=== PATIENT | male | born 1965 | race Caucasian/White ===

== ENCOUNTER → 2023-09-13 09:12 | Outpatient (REF) | payer BC, SELFPAY ==
[2023-09-13 10:47] LABS: Hematocrit 44.6 % (39.0-52.0); Mean Corp Hgb Conc. 33.6 g/dL (33.0-37.0); Mean Corpuscular Hgb 28.4 pg (27.0-31.0); Mean Corpuscular Volume 84.5 fL (80.0-94.0); Mean Platelet Volume 9.4 fL (7.4-10.4); Platelet Count 214 10^3/uL (130-400); Red Blood Cell Count 5.28 10^6/uL (4.70-6.10); Red Cell Dist. Width 11.9 % (11.5-14.5); White Blood Cell Count 6.3 10^3/uL (4.8-10.8)
[2023-09-13 11:19] LABS: ALT (SGPT) 65 U/L (0-50); AST (SGOT) 37 U/L (17-59); Albumin 4.7 g/dl (3.5-5.0); Alkaline Phosphatase 85 U/L (38-126); Blood Urea Nitrogen 21 mg/dl (9-20); Calcium 9.5 mg/dl (8.4-10.2); Carbon Dioxide 21 mmol/L (22-30); Chloride 104 mmol/L (98-107); Glucose 155 mg/dl (70-99); HDL Cholesterol 31 mg/dl; LDL Cholesterol, Calculated 89 mg/dl; Potassium 4.3 mmol/L (3.5-5.1); Sodium 137 mmol/L (135-145); Total Bilirubin 0.8 mg/dl (0.2-1.3); Total Cholesterol 169 mg/dl (50-199); Total Protein 8.1 g/dl (6.3-8.2); Triglyceride 246 mg/dl (10-149); Very Low Density Lipoprotein 49 mg/dl (0-30); eGFR > 60.00
[2023-09-13 11:28] LABS: Absolute Neutrophils -Man Diff 2.9 10^3/uL (1.4-6.5); Band Neutrophils 2 % (0-3); Eosinophils 3 % (0-6); Lymphocytes 39 % (20-51); Monocytes 11 % (2-9); Normal RBC Morphology Yes; Platelets Checked Yes; Segmented Neutrophils 45 % (42-75)
[2023-09-13 11:29] LABS: Total Cells Counted 100
[2023-09-13 11:41] LABS: Microalbumin, Random Urine 4.7 mg/dl (0.6-1.7)
[2023-09-13 11:45] LABS: TSH 3.02 uIU/ml (0.47-4.68)
== END ==
LOC: REG 09:12
PROVIDERS: ATTENDING PHYSICIAN Family Medicine
DX: E11.65 Type 2 diabetes mellitus with hyperglycemia (principal); E11.22 Type 2 diabetes mellitus with diabetic chronic kidney disease; N18.2 Chronic kidney disease, stage 2 (mild); R80.9 Proteinuria, unspecified; I10 Essential (primary) hypertension; E78.2 Mixed hyperlipidemia; K76.0 Fatty (change of) liver, not elsewhere classified
CPT/HCPCS: 36415; 80053; 80061; 82043; 82570; 83036; 84443; 85025

== ENCOUNTER → 2023-11-07 15:18 | Outpatient (REF) | payer BC, SELFPAY | LOC: PAVMRI 15:18 | PROVIDERS: ATTENDING PHYSICIAN Family Medicine | DX: E11.65 Type 2 diabetes mellitus with hyperglycemia (principal); G62.9 Polyneuropathy, unspecified; M79.605 Pain in left leg; M79.604 Pain in right leg | CPT/HCPCS: 72148 ==

== ENCOUNTER → 2023-12-15 12:33 | Outpatient (REF) | payer BC, SELFPAY ==
[2023-12-15 15:08] LABS: ALT (SGPT) 42 U/L (0-50); AST (SGOT) 30 U/L (17-59); Albumin 4.5 g/dl (3.5-5.0); Alkaline Phosphatase 65 U/L (38-126); Blood Urea Nitrogen 20 mg/dl (9-20); Calcium 9.2 mg/dl (8.4-10.2); Carbon Dioxide 22 mmol/L (22-30); Chloride 106 mmol/L (98-107); Glucose 151 mg/dl (70-99); HDL Cholesterol 32 mg/dl; LDL Cholesterol, Calculated 66 mg/dl; Potassium 4.3 mmol/L (3.5-5.1); Sodium 140 mmol/L (135-145); Total Bilirubin 0.8 mg/dl (0.2-1.3); Total Cholesterol 116 mg/dl (50-199); Total Protein 7.3 g/dl (6.3-8.2); Triglyceride 93 mg/dl (10-149); Very Low Density Lipoprotein 18 mg/dl (0-30); eGFR > 60.00
[2023-12-15 15:39] LABS: PSA, Total - Screen 0.96 ng/ml (0.0-4.0)
[2023-12-16 09:15] LABS: Glycohemoglobin (HgbA1c) 6.2 % (4.0-5.6)
== END ==
LOC: RCS 12:33
PROVIDERS: ATTENDING PHYSICIAN Family Medicine
DX: E11.65 Type 2 diabetes mellitus with hyperglycemia (principal); I11.9 Hypertensive heart disease without heart failure; I44.7 Left bundle-branch block, unspecified; I42.0 Dilated cardiomyopathy; Z12.5 Encounter for screening for malignant neoplasm of prostate; E78.2 Mixed hyperlipidemia
CPT/HCPCS: 36415; 80053; 80061; 83036; 93306; G0103

== ENCOUNTER 2024-03-29 07:40 | Inpatient (IN) | payer BC, SELFPAY ==
[2024-03-29] VITALS (16 sets, daily range): BP systolic 88–133; BP diastolic 50–69; PULSE 65–110; O2SAT 98; BMI 31.8
[2024-03-29 02:44] LABS: Glucose - Point of Care 237 mg/dl (70-99)
--- NOTE | 2024-03-29 03:05 | ED.GENMED ---
History of Present Illness
<DAINA Dunham - Last Filed: 03/29/24 03:59>
General
Chief Complaint: Fainting/Passed Out
Source: patient
Time Seen by Provider: 03/29/24 02:46
Nursing documentation reviewed up to this point in time: agreed with
History of Present Illness
History of Present Illness:
Pt is a 59 yo M who presents to the emergency department via EMS due to syncopal episode at home. Pt states that he got up during the night to go to the bathroom and fainted in the bathroom. The patient's states that the patient was able to get
himself up from the bathroom floor and was able to walk to the bed to sit down. Pt states that he felt dizzy before the fainted. Pt denies hitting his head. Pt had nausea and 3 episodes of vomiting that began when EMS arrived and began to move the
patient. Pt was given Zofran by EMS prior to arriving to the ED. Pt states that he feels weak. He states that he has never experienced this previously. Pt denies chest pain, shortness of breath, headache, abdominal pain, fever, chills, changes in
hearing.
The patient's reports that since Monday the patient has been having cold-like symptoms of nasal congestion and dry cough.
Past History
<DAINA Dunham - Last Filed: 03/29/24 03:59>
Past History
ED Past Medical History: Other (divericulitis, chronic leg neuropathy )
Social History
Tobacco: Non-smoker
Alcohol: Occasional
Family History
Family History: CAD; Negative Diabetes or Hypertension
Review of Systems
<DAINA Dunham - Last Filed: 03/29/24 03:59>
Review of Systems
Allergies reviewed?: Yes
Constitutional: Reports no symptoms
Respiratory: Reports no symptoms
Cardiac: Reports syncope
ABD/GI: Reports nausea and vomiting
: Reports no symptoms
Neurological: Reports weakness
Phy Exam
<Tiffany Kauffman, [facility] - Last Filed: 03/29/24 03:59>
General Physical Exam
General Presentation: severe distress
General age: appears stated age
General Skin: pale
General Habitus: normal
General Mental: alert
General Hydration: appears well hydrated
Cardiovascular Exam
Cardiovascular Exam: regular rate/rhythm
Pulmonary Exam
Pulmonary Exam: lungs clear
Neurological Exam
Neurological Exam: alert, oriented x3 and speech normal
Sepsis
<Damián Boateng DO - Last Filed: 03/29/24 06:13>
Sepsis Screening
Sepsis Assessment: Sepsis
Sepsis Screening: Lactate >2mmol/L
Sepsis Screen
Sepsis Screen: Sepsis
Date: 03/29/24
Time: 06:13
Course
<Tiffany Kauffman, [facility] - Last Filed: 03/29/24 03:59>
Orders/Labs/Results
Orders:
Orders
03/29/24 02:42
Electrocardiogram (*1) Urgent
Reason for Study: Chest Pain
CT Head W/o Iv Contrast Urgent
Comment:
Reason For Exam: syncope vomiting
Cardiac Monitoring- Treatment ONCE
EKG- Treatment ONCE
IV Insert/Care/Rem.- Treatment PRN
Accucheck Once [Bedside Glucose Monitoring-ONCE] As Directed
O2 Therapy [RESP] Urgent
Titrate/Wean O2 to maintain O2 sat greater than (%): 90
Special Instructions: Maintain sats >/=90%
Pulse Ox/spot Check [RESP] Urgent
Quantity: 1
Special Instructions: ON ROOM AIR
03/29/24 03:00
Complete Blood Count/With Diff Urgent
Comprehensive Metabolic Panel Urgent
Lipase Urgent
Troponin I Urgent
03/29/24 03:09
Lactic Acid Q4H
Comment: CANCEL 2nd LACTIC ACID IF 1st LACTIC ACID IS LESS THAN 2
03/29/24 03:11
Chest [CR Chest - 2 Views ] Urgent
Comment:
Reason For Exam: emesis, syncope
03/29/24 03:24
0.9% Sodium Chloride 1000 ml [Nss] 1,000 ml IV BOLUS
03/29/24 05:17
COVID-19 Antigen Urgent
Source: Nasal Swab
Influenza A+B Rapid Molecular Urgent
MAXINE Source: Nasal Swab
Specimen Description:
03/29/24 05:33
0.9% Sodium Chloride 500 ml [Nss] 1,000 ml IV ONCE
03/29/24 06:15
0.9% Sodium Chloride 1000 ml [Nss] 1,000 ml IV 250 mls/hr
03/29/24 07:00
Lactate Level [Lactic Acid] Urgent
Abnormal Lab Results
03/29/24 03/29/24 03/29/24
02:42 03:00 03:09
WBC 19.3 H 10^3/uL
(4.8-10.8)
Abs Immat Gran (auto) 0.1 H 10^3/uL
(0-0.05)
Absolute Neuts (auto) 11.5 H 10^3/uL
(1.4-6.5)
Absolute Lymphs (auto) 4.9 H 10^3/uL
(1.2-3.4)
Absolute Monos (auto) 2.2 H 10^3/uL
(0.1-0.6)
Immature Gran % 0.7 H %
(0-0.5)
Monocytes % 11.3 H %
(1.7-9.3)
Carbon Dioxide 21 L mmol/L
(22-30)
BUN 30 H mg/dl
(9-20)
Glucose 233 H mg/dl
(70-99)
Lactic Acid 2.5 H mmol/L
(0.7-2.0)
SARS-CoV-2 Antigen
POC Glucose 237 H mg/dl
(70-99)
03/29/24
05:17
WBC
Abs Immat Gran (auto)
Absolute Neuts (auto)
Absolute Lymphs (auto)
Absolute Monos (auto)
Immature Gran %
Monocytes %
Carbon Dioxide
BUN
Glucose
Lactic Acid
SARS-CoV-2 Antigen Positive A
(Negative)
POC Glucose
03/29/24 03:00
03/29/24 03:00
Vital Signs
Initial and Last Documented VS:
Initial Vital Signs
Temp Pulse Resp Pulse Ox
97.8 F 75 16 97
03/29/24 02:44 03/29/24 02:44 03/29/24 02:44 03/29/24 02:44
Last Documented Vital Signs
Temp Pulse Resp BP Pulse Ox
97.8 F 62 12 88/53 92
03/29/24 02:44 03/29/24 05:30 03/29/24 05:30 03/29/24 05:00 03/29/24 05:30
<Damián Boateng, DO - Last Filed: 03/29/24 06:13>
Orders/Labs/Results
Orders:
Orders
03/29/24 02:42
Electrocardiogram (*1) Urgent
Reason for Study: Chest Pain
CT Head W/o Iv Contrast Urgent
Comment:
Reason For Exam: syncope vomiting
Cardiac Monitoring- Treatment ONCE
EKG- Treatment ONCE
IV Insert/Care/Rem.- Treatment PRN
Accucheck Once [Bedside Glucose Monitoring-ONCE] As Directed
O2 Therapy [RESP] Urgent
Titrate/Wean O2 to maintain O2 sat greater than (%): 90
Special Instructions: Maintain sats >/=90%
Pulse Ox/spot Check [RESP] Urgent
Quantity: 1
Special Instructions: ON ROOM AIR
03/29/24 03:00
Complete Blood Count/With Diff Urgent
Comprehensive Metabolic Panel Urgent
Lipase Urgent
Troponin I Urgent
03/29/24 03:09
Lactic Acid Q4H
Comment: CANCEL 2nd LACTIC ACID IF 1st LACTIC ACID IS LESS THAN 2
03/29/24 03:11
Chest [CR Chest - 2 Views ] Urgent
Comment:
Reason For Exam: emesis, syncope
03/29/24 03:24
0.9% Sodium Chloride 1000 ml [Nss] 1,000 ml IV BOLUS
03/29/24 05:17
COVID-19 Antigen Urgent
Source: Nasal Swab
Influenza A+B Rapid Molecular Urgent
MAXINE Source: Nasal Swab
Specimen Description:
03/29/24 05:33
0.9% Sodium Chloride 500 ml [Nss] 1,000 ml IV ONCE
03/29/24 06:15
0.9% Sodium Chloride 1000 ml [Nss] 1,000 ml IV 250 mls/hr
03/29/24 07:00
Lactate Level [Lactic Acid] Urgent
Abnormal Lab Results
03/29/24 03/29/24 03/29/24
02:42 03:00 03:09
WBC 19.3 H 10^3/uL
(4.8-10.8)
Abs Immat Gran (auto) 0.1 H 10^3/uL
(0-0.05)
Absolute Neuts (auto) 11.5 H 10^3/uL
(1.4-6.5)
Absolute Lymphs (auto) 4.9 H 10^3/uL
(1.2-3.4)
Absolute Monos (auto) 2.2 H 10^3/uL
(0.1-0.6)
Immature Gran % 0.7 H %
(0-0.5)
Monocytes % 11.3 H %
(1.7-9.3)
Carbon Dioxide 21 L mmol/L
(22-30)
BUN 30 H mg/dl
(9-20)
Glucose 233 H mg/dl
(70-99)
Lactic Acid 2.5 H mmol/L
(0.7-2.0)
SARS-CoV-2 Antigen
POC Glucose 237 H mg/dl
(70-99)
03/29/24
05:17
WBC
Abs Immat Gran (auto)
Absolute Neuts (auto)
Absolute Lymphs (auto)
Absolute Monos (auto)
Immature Gran %
Monocytes %
Carbon Dioxide
BUN
Glucose
Lactic Acid
SARS-CoV-2 Antigen Positive A
(Negative)
POC Glucose
03/29/24 03:00
03/29/24 03:00
Vital Signs
Initial and Last Documented VS:
Initial Vital Signs
Temp Pulse Resp Pulse Ox
97.8 F 75 16 97
03/29/24 02:44 03/29/24 02:44 03/29/24 02:44 03/29/24 02:44
Last Documented Vital Signs
Temp Pulse Resp BP Pulse Ox
97.8 F 62 12 88/53 92
03/29/24 02:44 03/29/24 05:30 03/29/24 05:30 03/29/24 05:00 03/29/24 05:30
<DAINA Dunham - Last Filed: 03/29/24 03:59>
*Critical Care Note
Total Time (30-74mins, 75-104mins- exclusive of procedures): Not Applicable
<Damián Boateng DO - Last Filed: 03/29/24 06:13>
Update Note
Update Note:
Discussed lab work with patient. He is still feeling weak. He does not feel that he can ambulate. Patient notes that he is COVID-positive. He does not feel nauseated any longer, but feels that he does not feel great. Denies fever or chills
currently. Denies chest pain or shortness of breath. Patient to be admitted and to the hospitalist service for COVID and weakness.
ED Attending Note
<DAINA Dunham - Last Filed: 03/29/24 03:59>
-
Portions of this chart may have been created with voice recognition software.� Occasional wrong word or��sound alike� substitutions may have occurred due to the inherent limitations of voice recognition software.
Discharge Plan
Departure
Patient Disposition: Admit
Date of Disposition: 03/29/24
Time of Disposition: 06:09
Admit to: Telemetry
Presentation/result/management discussed w/ accepting MD/DO: Hospitalist
Condition: Fair
Discharge Problem:
COVID, Sepsis, Syncope and collapse, Intractable nausea and vomiting
Prescriptions:
No Action
aspirin 1 MG tablet
325 mg PO DAILY
Patient Comments:
PT NOT USUALLY ON ASA ONLY TOOK ON 05/27 AND 05/28
gabapentin 100 MG capsule
100 mg PO BID
Referrals:
Smita Camilo MD [Family Provider] -
Interventions
Interventions:
*Risk Screen - Suicide Last Done: 03/29/24 02:50
*General Assessment Last Done: 03/29/24 02:50
*Neglect/Abuse Screening Last Done: 03/29/24 02:50
ED- Fall Risk Assessment Last Done: 03/29/24 03:00
*ED COVID-19 Vaccine History Last Done: 03/29/24 03:00
ED- Cardiac Assessment Last Done: 03/29/24 03:00
ED- Neurological Assessment Last Done: 03/29/24 03:00
Discharge Date and Time
Print Language: ZAMBIAN
[2024-03-29 03:08] LABS: % Basophils 0.6 % (0-2); % Eosinophils 2.3 % (0-6); % Immature Granulocytes 0.7 % (0-0.5); % Lymphocytes 25.5 % (20.5-51.1); % Monocytes 11.3 % (1.7-9.3); % Neutrophils 59.6 % (42.2-75.2); Absolute Basophils 0.1 10^3/uL (0-0.2); Absolute Eosinophils 0.5 10^3/uL (0-0.7); Absolute Immature Granulocytes 0.1 10^3/uL (0-0.05); Absolute Lymphocytes 4.9 10^3/uL (1.2-3.4); Absolute Monocytes 2.2 10^3/uL (0.1-0.6); Absolute Neutrophils 11.5 10^3/uL (1.4-6.5); Hematocrit 41.6 % (39.0-52.0); Hemoglobin 14.2 g/dL (13.0-18.0); Mean Corp Hgb Conc. 34.1 g/dL (33.0-37.0); Mean Corpuscular Volume 84.9 fL (80.0-94.0); Nucleated Red Blood Cells % 0 % (-); Platelet Count 329 10^3/uL (130-400); Red Cell Dist. Width 12.3 % (11.5-14.5); White Blood Cell Count 19.3 10^3/uL (4.8-10.8)
[2024-03-29 03:23] LABS: ALT (SGPT) 32 U/L (0-50); AST (SGOT) 24 U/L (17-59); Albumin 4.3 g/dl (3.5-5.0); Alkaline Phosphatase 84 U/L (38-126); Blood Urea Nitrogen 30 mg/dl (9-20); Calcium 8.9 mg/dl (8.4-10.2); Carbon Dioxide 21 mmol/L (22-30); Chloride 102 mmol/L (98-107); Glucose 233 mg/dl (70-99); Lipase 131 U/L (23-300); Potassium 3.6 mmol/L (3.5-5.1); Sodium 139 mmol/L (135-145); Total Bilirubin 0.5 mg/dl (0.2-1.3); Total Protein 7.4 g/dl (6.3-8.2); eGFR > 60.00
[2024-03-29 03:33] LABS: Lactic Acid 2.5 mmol/L (0.7-2.0)
[2024-03-29 03:34] LABS: Troponin I < 0.012 ng/ml
[2024-03-29] MEDS: NSS 1000 IV ×3 (03:47→07:31)
[2024-03-29 05:40] LABS: COVID-19 Antigen Positive (Negative)
--- NOTE | 2024-03-29 07:03 | HPS.HSE ---
Family Physician
-
Family Physician: Smita Camilo MD
Chief Complaint
-
Syncope
History of Present Illness
Patient is a 59y M with PMH significant for hypertension and DM-II who presents to ED complaining of N/V, weakness and syncope. Patient states that he started to feel ill about one week ago. He had primarily GI symptoms with N/V/D. These
symptoms seemed to gradually improve and on he felt fairly well. He had fair appetite for the past two days.
This evening he woke in the middle of the night with the urge to urinate. He began to walk to the bathroom and he collapsed. He does not believe that he completely lost consciousness.
He had multiple episodes of emesis after his fall. EMS was called and patient was brought to the ED for further evaluation and treatment.
Medical History
Past Medical History
Past Medical History: Reports Other
Additional Past Medical History:
Hypertension
DM-II
Obesity
Diverticular Disease
Past Surgical History: Reports Other
Additional Past Surgical History:
Partial Bowel Resection (Perforated Diverticulum)
Social History
Tobacco: Non-smoker
Alcohol: None
Drug: None
Personal:
Living: With Family
Family History
Family History: Not pertinent
Allergies / Home Medications
Allergies reflects when Allergies were last updated in [employer].
Home Medications with original date entered in [employer]
Allergy/Medication List:
Allergies
Allergy/AdvReac Type Severity Reaction Status Date / Time
No Known Allergies Allergy Verified 03/29/24 02:43
Home Medications
glipizide 5 mg tablet 5 mg PO DAILY 03/29/24
lisinopril 03/29/24
tirzepatide 7.5 mg/0.5 mL subcutaneous pen injector (Mounjaro) 7.5 mg SC QWEEK 03/29/24
Patient unaware of lisinopril dose.
Also notes that he takes one other BP med - the name of which he cannot recall.
Review of Systems
-
History Source: Patient
A 12 point ROS was completed and negative except as noted: Yes
Constitutional: Reports Fatigue; Denies Fever or Chills
EENT: Denies Sore Throat
Respiratory: Denies Cough or Trouble Breathing
Cardiac: Reports Syncope; Denies Chest Pain or Palpitations
Abdomen/GI: Reports Nausea, Vomiting and Diarrhea; Denies Abdominal Pain, Bloody Stools, Black Stools or Anorexia
: Denies Dysuria or Frequency
Musculoskeletal: Denies Joint Pain or Edema
Neurological: Reports Dizzy and Weakness; Denies Headache or Numbness
Psych: Denies Depression or Anxiety
Physical Exam
Vital Signs
Vital Signs
Temp Pulse Resp BP Pulse Ox
97.8 F 63 9 116/57 92
03/29/24 02:44 03/29/24 06:00 03/29/24 06:00 03/29/24 06:00 03/29/24 06:00
Physical Exam
General: Other (Ill-appearing 59y M.)
HEENT: Other (Very dry MM.)
Respiratory: Clear; No Wheezes, Rales or Rhonchi
Cardiac: S1/S2, Regular Rhythm and Murmur (II/ RANJANA)
GI: Soft, Non Tender, Non Distended and Normal Bowel Sounds
Musculoskeletal: No Clubbing, No Cyanosis and No Edema
Neuro: AO x 3
Laboratory Results
-
03/29/24 03:00
03/29/24 03:00
Laboratory Results
Lactic Acid 2.5 mmol/L (0.7-2.0) H 03/29/24 03:09
Total Bilirubin 0.5 mg/dl (0.2-1.3) 03/29/24 03:00
AST 24 U/L (17-59) 03/29/24 03:00
ALT 32 U/L (0-50) 03/29/24 03:00
Alkaline Phosphatase 84 U/L (38-126) 03/29/24 03:00
Troponin I < 0.012 ng/ml 03/29/24 03:00
Lipase 131 U/L (23-300) 03/29/24 03:00
Impression/Plan
-
A/P: Patient is a 59y M with PMH significant for HTN and DM-II who presents to ED complaining of N/V/D and syncopal episode this evening.
COVID-19 Infection
Gastroenteritis
- Admit for further evaluation and treatment.
- COVID positive in the ED this AM. Patient states that he has received multiple vaccinations - including a booster this Fall.
- No significant hypoxemia, cough, reported dyspnea, etc.
- Primarily GI symptoms.
- Supportive care including IVFs, antiemetics, etc.
- Follow proper precautions.
- Check stool studies to rule out other potential GI infections.
- Follow for any new / worsening symptoms.
Lactic Acidosis
Leukocytosis
WALT
- Likely secondary to volume losses / stress response.
- SCr = 1.3 compared to baseline of 1.
- IVFs, supportive care as noted above.
- Follow temperature curve, monitor for any new symptoms.
- Observe off of abx for now.
- Follow labs / lytes for improvement.
Syncope
- Likely secondary to the above - hypovolemia, volume losses, etc.
- Monitor on tele for any evidence of arrhythmia.
- Follow orthostatic signs.
- PT / OT evaluations.
Benign Hypertension
- Hold BP medications acutely.
DM-II
- Hold glipizide and Mounjaro.
- Mounjaro potentially contributing to GI symptoms - patient notes he has been gradually increasing dose over the past few months.
- Follow glucose and cover with SSI as needed.
- Update A1C.
DVT Prophylaxis: Lovenox
Code Status: Full
[2024-03-29 07:50] LABS: Lactic Acid 1.1 mmol/L (0.7-2.0)
[2024-03-29 09:23] LABS: Glucose - Point of Care 116 mg/dl (70-99)
[2024-03-29] MEDS: LR 1000 IV ×3 (09:23→21:55)
[2024-03-29] MEDS: PROTONIX IV 40 MG IV (09:57)
[2024-03-29] MEDS: NSS (PRESERVATIVE FREE) 10 ML IV (09:58)
[2024-03-29 10:37] LABS: TSH Reflex To Free T4 2.11 uIU/ml (0.47-4.68)
[2024-03-29 12:48] LABS: Glucose - Point of Care 126 mg/dl (70-99)
--- NOTE | 2024-03-29 13:59 | CM ---
Reviewed the chart notes. Patient resides with spouse in a two story home. No DME/VN/SNF. Patient on room air. CM continues to be available to patient/family and is monitoring medical plan for needs at discharge.
Plan: Discharge to home when medically stable. No needs anticipated.
[2024-03-29 17:09] LABS: Glucose - Point of Care 112 mg/dl (70-99)
[2024-03-29 21:54] LABS: Glucose - Point of Care 89 mg/dl (70-99)
--- NOTE | 2024-03-29 22:10 | PTCARENOTE ---
Pt provided a 4oz apple juice at this time r/t to blood glucose 89. Pt did have dinner and 2 additional apple sauces @ dinner. Pt aware of s/s of hypoglycemia and educated to tell staff immediately
[2024-03-30 03:23] VITALS: BP 128/72
[2024-03-30] MEDS: LR 1000 IV (04:08)
[2024-03-30 06:58] LABS: Hematocrit 36.6 % (39.0-52.0); Hemoglobin 12.3 g/dL (13.0-18.0); Mean Corp Hgb Conc. 33.6 g/dL (33.0-37.0); Mean Corpuscular Hgb 28.7 pg (27.0-31.0); Mean Corpuscular Volume 85.5 fL (80.0-94.0); Platelet Count 261 10^3/uL (130-400); Red Blood Cell Count 4.28 10^6/uL (4.70-6.10); Red Cell Dist. Width 12.3 % (11.5-14.5); White Blood Cell Count 9.7 10^3/uL (4.8-10.8)
[2024-03-30 07:04] LABS: Blood Urea Nitrogen 19 mg/dl (9-20); Calcium 8.4 mg/dl (8.4-10.2); Carbon Dioxide 26 mmol/L (22-30); Chloride 108 mmol/L (98-107); Estimated Creatinine Clearance 90 ml/min; Glucose 71 mg/dl (70-99); Magnesium 2.4 mg/dl (1.6-2.3); Phosphorus 3.7 mg/dl (2.5-4.5); Potassium 4.5 mmol/L (3.5-5.1); Sodium 143 mmol/L (135-145); eGFR > 60.00
[2024-03-30 07:21] LABS: Glucose - Point of Care 80 mg/dl (70-99)
[2024-03-30 07:35] VITALS: BP 134/75
[2024-03-30 08:44] LABS: Glycohemoglobin (HgbA1c) 5.4 % (4.0-5.6)
[2024-03-30 09:00] VITALS: BP 137/72
--- NOTE | 2024-03-30 09:31 | PTOTSP ---
pt currently demonstrates ability to complete simple ADLs, functional transfers, ambulation with supervision to no assistance. no acute OT needs identified at this time, will sign off.
[2024-03-30] MEDS: PROTONIX IV 40 MG IV (09:32)
[2024-03-30] MEDS: NSS (PRESERVATIVE FREE) 10 ML IV (09:32)
[2024-03-30 11:00] VITALS: BP 140/73; BP 152/79; BP 162/75; PULSE 69; PULSE 73; PULSE 78
[2024-03-30 11:41] VITALS: BP 162/75
[2024-03-30] MEDS: MIRALAX 17 GRAMS PO (11:58)
--- NOTE | 2024-03-30 12:43 | W.PN.HOSP.TC ---
Today's Communication/Plan
-
d/c home
Assessment / Plan
Assessment / Plan
COVID-19 Viral Infection
Gastroenteritis - Improved
- COVID positive in the ED. Patient states that he has received multiple vaccinations - including a booster this Fall.
- No significant hypoxemia, cough, reported dyspnea, etc.
- Primarily GI symptoms.
- No further diarrhea, cancel noro virus check, stool culture collected.
- Follow for any new / worsening symptoms.
Lactic Acidosis - resolved
Leukocytosis -resolved
WALT - resolved
- Likely secondary to volume losses / stress response.
- Cr 1.3, improved.
- Stop further IVF
Syncope - No further episode
Orthostatic hypotension - resolved
- Likely secondary to the above - hypovolemia, volume losses, etc.
- Monitor on tele for any evidence of arrhythmia.
- PT / OT evaluations
Benign Hypertension
- can resume lisinopril. hold HCTZ for 48 hrs post discharge.
DM-II
- Can resume glipizide/Mounjaro
- Mounjaro potentially contributing to GI symptoms - patient notes he has been gradually increasing dose over the past few months.
- Follow glucose and cover with SSI as needed.
- Update A1C.
DVT Prophylaxis: Lovenox
Code Status: Full
More than 30 minutes spent in discharge including
Final examination of the patient
Summarizing hospital stay
Instructions for continuing care to all relevant caregivers
Preparation of discharge records, prescriptions, and referral forms
Total time spent (in minutes): 38 mins
Anticipated Discharge: Today
Subjective/Interval History
-
Date of Service: March 30, 2024
no dyspnea/hypoxia
no other problems
Objective Data
-
Labs:
Laboratory Results
03/30/24
05:31
WBC 9.7
Hgb 12.3 L
Hct 36.6 L
Plt Count 261 D
Sodium 143
Potassium 4.5
Chloride 108 H
Carbon Dioxide 26
BUN 19
Creatinine 1.1
Glucose 71
Calcium 8.4
Vital Signs:
Vital Signs
Temp Pulse Resp BP Pulse Ox
98.3 F 69 16 162/75 95
03/30/24 11:41 03/30/24 11:41 03/30/24 11:41 03/30/24 11:41 03/30/24 11:41
I&O
03/29/24 03/30/24 03/31/24
06:59 06:59 06:59
Intake Total 2860 / 2860
Output Total 650 / 650
Balance 2210 / 2210
Review of Systems
-
Respiratory: Reports No Symptoms
Cardiac: Reports No Symptoms
Abdomen/GI: Reports No Symptoms
Physical Exam
-
General: No Apparent Distress and Comfortable
HEENT: Negative Oxygen
Respiratory: Clear to Auscultation
Cardiac: Regular Rhythm and S1/S2; Negative Murmur or Rub
GI: Soft, Nontender and Nondistended
Musculoskeletal: No Edema
Neuro: Awake, Alert, Oriented, No Motor Deficits and Nonfocal/Grossly Intact
Psych: Calm
--- NOTE | 2024-03-31 15:01 | W.DCSUMMARY ---
Discharge Summary
Discharge Data
Date of Admission: 03/29/24
Date of Discharge: 03/30/24
-
Pending Results: No
Hospital Course
Discharging Physician : Dr Jaime Munoz
Disposition : Home
Primary care physician : Dr Smita Camilo
Principal Discharge diagnosis :
Acute kidney injury
Nausea/vomiting with COVID infection
Syncope with orthostatic hypotension
Showed Getting COVID-19 viral infection
Chronic Discharge diagnosis :
Essential hypertension
Type 2 diabetes mellitus
History of diverticular disease
Hospital Course :
Patient is 59-year-old male with no mentioned past medical history came to ER with nausea/vomiting and syncopal episode. Patient has been feeling sick for 1 week primary with GI issues. Symptoms initially improved although reoccurred causing
patient to have syncope in bathroom. No reported head injury. In ER rapid evaluation showing patient having orthostatic hypotension, tested positive for COVID-19 viral infection as well. Patient chest x-ray did not show any significant pulmonary
infiltrate. Patient was not requiring any oxygen support. Patient was felt to having volume depletion from COVID-related GI issues. Patient had mild renal dysfunction. Patient was started on IV fluid and was monitored in the hospital overnight.
Patient repeat orthostatic vitals were negative. Creatinine normalized as well. At this point patient was discharged home with follow-up with primary care physician office.
Important imaging findings :
None
Procedure findings :
None
Discharge Plan
-
Patient Disposition: Home (Routine Discharge)
Discharge Diagnosis/Procedures: COVID 19 Viral infection, Diarrhea, Syncope, Volume depletion, Mild renal failure
Condition: Fair
Diet: Regular
Activity: As tolerated
Driving Restrictions: No driving
Bathing Restrictions: OK to Shower
Referrals:
Smita Camilo MD [Family Provider] - in one week
Prescriptions:
Continued
lisinopril 40 mg Tablet
40 mg PO DAILY
Mounjaro 7.5 mg/0.5 mL Pen Injector
7.5 mg SC FR
gabapentin 600 mg Tablet
600 mg PO BID
glipizide 5 mg Tablet Extended Release 24hr
5 mg PO DAILY
ibuprofen [Advil] 200 mg Tablet
400 mg PO Q8HPRN PRN (Reason: mild pain)
rosuvastatin [Crestor] 5 mg Tablet
5 mg PO DAILY
Pepcid Complete 10-800-165 mg Tablet,Chewable
1 tab PO DAILYPRN PRN (Reason: gerd)
Held
hydrochlorothiazide 25 mg Tablet
25 mg PO DAILY
Hold Instructions: Resume on 04/01/24.
Discharge Orders:
Discharge Patient (As Directed); Ordered 03/30/24
Ordered By: Jaime Munoz
Discharge Date and Time
Discharge Date/Time: 03/30/24 13:23
Print Language: SWEDISH
== END 2024-03-30 13:23 | disposition home or self-care (01) | DRG 178 ==
LOC: 2 NORTH 07:40
PROVIDERS: ADMITTING PHYSICIAN Hospitalist; ATTENDING PHYSICIAN Hospitalist; EMERGENCY PHYSICIAN Student in an Organized Health Care Education/Training Program; FAMILY PHYSICIAN Family Medicine
DX: U07.1 COVID-19 (principal); E87.20 Acidosis, unspecified; I10 Essential (primary) hypertension; E11.41 Type 2 diabetes mellitus with diabetic mononeuropathy; I95.1 Orthostatic hypotension; E11.8 Type 2 diabetes mellitus with unspecified complications
CPT/HCPCS: 70450; 71046; 80048; 80053; 82962; 83036; 83605; 83690; 83735; 84100; 84443; 84484; 85025; 85027; 87045; 87046; 87427; 87502; 87811; 93005; 94760; 96360; 97110; 97161; 97165; 99285

== ENCOUNTER → 2024-04-06 11:17 | Outpatient (REF) | payer BC, SELFPAY ==
[2024-04-06 12:40] LABS: % Basophils 0.7 % (0-2); % Eosinophils 2.4 % (0-6); % Immature Granulocytes 0.5 % (0-0.5); % Lymphocytes 22.1 % (20.5-51.1); % Monocytes 8.8 % (1.7-9.3); % Neutrophils 65.5 % (42.2-75.2); Absolute Basophils 0.1 10^3/uL (0-0.2); Absolute Eosinophils 0.3 10^3/uL (0-0.7); Absolute Immature Granulocytes 0.1 10^3/uL (0-0.05); Absolute Lymphocytes 2.5 10^3/uL (1.2-3.4); Absolute Neutrophils 7.3 10^3/uL (1.4-6.5); Hematocrit 45.2 % (39.0-52.0); Hemoglobin 15.8 g/dL (13.0-18.0); Mean Corpuscular Hgb 29.2 pg (27.0-31.0); Mean Corpuscular Volume 83.4 fL (80.0-94.0); Mean Platelet Volume 9.1 fL (7.4-10.4); Nucleated Red Blood Cells % 0 % (-); Platelet Count 348 10^3/uL (130-400); Red Blood Cell Count 5.42 10^6/uL (4.70-6.10); Red Cell Dist. Width 12.2 % (11.5-14.5); White Blood Cell Count 11.1 10^3/uL (4.8-10.8)
[2024-04-06 13:07] LABS: ALT (SGPT) 34 U/L (0-50); AST (SGOT) 25 U/L (17-59); Albumin 4.7 g/dl (3.5-5.0); Alkaline Phosphatase 80 U/L (38-126); Blood Urea Nitrogen 27 mg/dl (9-20); Calcium 9.7 mg/dl (8.4-10.2); Carbon Dioxide 24 mmol/L (22-30); Chloride 102 mmol/L (98-107); Glucose 137 mg/dl (70-99); Potassium 4.4 mmol/L (3.5-5.1); Sodium 139 mmol/L (135-145); Total Bilirubin 0.9 mg/dl (0.2-1.3); Total Protein 8.2 g/dl (6.3-8.2); eGFR > 60.00
== END ==
LOC: REG 11:17
PROVIDERS: ATTENDING PHYSICIAN Family Medicine
DX: U07.1 COVID-19 (principal); R55 Syncope and collapse; R42 Dizziness and giddiness
CPT/HCPCS: 36415; 80053; 85025

== ENCOUNTER → 2024-05-10 09:19 | Outpatient (REF) | payer BC, SELFPAY ==
[2024-05-10 10:14] LABS: % Basophils 1.1 % (0-2); % Eosinophils 3.7 % (0-6); % Immature Granulocytes 0.5 % (0-0.5); % Lymphocytes 28.5 % (20.5-51.1); % Monocytes 10.6 % (1.7-9.3); % Neutrophils 55.6 % (42.2-75.2); Absolute Basophils 0.1 10^3/uL (0-0.2); Absolute Eosinophils 0.3 10^3/uL (0-0.7); Absolute Lymphocytes 2.3 10^3/uL (1.2-3.4); Absolute Monocytes 0.9 10^3/uL (0.1-0.6); Absolute Neutrophils 4.5 10^3/uL (1.4-6.5); Hematocrit 44.1 % (39.0-52.0); Hemoglobin 15.3 g/dL (13.0-18.0); Mean Corp Hgb Conc. 34.7 g/dL (33.0-37.0); Mean Corpuscular Hgb 28.8 pg (27.0-31.0); Mean Corpuscular Volume 82.9 fL (80.0-94.0); Mean Platelet Volume 8.7 fL (7.4-10.4); Nucleated Red Blood Cells % 0 % (-); Platelet Count 297 10^3/uL (130-400); Red Blood Cell Count 5.32 10^6/uL (4.70-6.10); Red Cell Dist. Width 12.5 % (11.5-14.5); White Blood Cell Count 8.1 10^3/uL (4.8-10.8)
[2024-05-10 10:31] LABS: ALT (SGPT) 38 U/L (0-50); AST (SGOT) 28 U/L (17-59); Albumin 4.8 g/dl (3.5-5.0); Alkaline Phosphatase 83 U/L (38-126); Blood Urea Nitrogen 22 mg/dl (9-20); Carbon Dioxide 22 mmol/L (22-30); Chloride 102 mmol/L (98-107); Glucose 127 mg/dl (70-99); HDL Cholesterol 33 mg/dl; LDL Cholesterol, Calculated 125 mg/dl; Potassium 4.3 mmol/L (3.5-5.1); Sodium 138 mmol/L (135-145); Total Bilirubin 0.6 mg/dl (0.2-1.3); Total Cholesterol 186 mg/dl (50-199); Total Protein 8.2 g/dl (6.3-8.2); Triglyceride 143 mg/dl (10-149); Very Low Density Lipoprotein 28 mg/dl (0-30); eGFR > 60.00
[2024-05-10 11:01] LABS: Microalbumin, Random Urine 1.7 mg/dl (0.6-1.7); Microalbumin/creatinine Ratio 9.3 mg/g
[2024-05-10 11:31] LABS: TSH Reflex To Free T4 2.06 uIU/ml (0.47-4.68)
[2024-05-10 12:35] LABS: Glycohemoglobin (HgbA1c) 5.2 % (4.0-5.6)
== END ==
LOC: REG 09:19
PROVIDERS: ATTENDING PHYSICIAN Family Medicine
DX: E11.29 Type 2 diabetes mellitus with other diabetic kidney complication (principal); E11.69 Type 2 diabetes mellitus with other specified complication; R80.9 Proteinuria, unspecified; I11.9 Hypertensive heart disease without heart failure; E78.2 Mixed hyperlipidemia
CPT/HCPCS: 36415; 80053; 80061; 82043; 82570; 83036; 84443; 85025

== ENCOUNTER → 2024-05-15 13:34 | Outpatient (REF) | payer BC, SELFPAY | LOC: RAD 13:34 | PROVIDERS: ATTENDING PHYSICIAN Family Medicine | DX: R42 Dizziness and giddiness (principal) | CPT/HCPCS: 93880 ==